=== PATIENT | male | born 1945 | race Caucasian/White ===

== ENCOUNTER → 2018-07-07 | Outpatient (CLI) | payer OTHER ==
--- NOTE | 2018-07-07 10:18 | MR ---
EXAMINATION TYPE: MR shoulder LT wo con DATE OF EXAM: 07/07/2018 COMPARISON: Radiograph 12/04/2013 HISTORY: 73-year-old male Pain in left shoulder TECHNIQUE: Multiplanar, multisequence imaging of the left shoulder is performed without contrast. FINDINGS: Heterogeneity of the subscapularis tendon which remains intact. There is intermediate signal within the intracapsular portion of the long biceps tendon. Mild to mode rate tenosynovial fluid along the bicipital groove. Moderate degenerative joint space narrowing and marginal spurring and capsular hypertrophy at the acr omioclavicular joint. Heterogeneous signal of both supraspinatus and infraspinatus tendons. There is an irregular full-thic kness tear of the anterior to mid supraspinatus tendon. The tear measures approximately 1.5 cm long b y 1.6 cm AP area of the tear is irregular with some minimal strandy fibers still seen intact and some additional fluid delaminating proximally along the myotendinous junction of the supraspinatus The infraspinatus tendon appears intact. No fatty atrophy of the rotator cuff musculature. There is a mild subacromial subdeltoid bursal effusion. The glenohumeral joint remains intact. No discrete labral tear given nonarthrographic technique and n o paralabral cyst. Along the anterior superior quadrant of the glenoid, normal variant of a sublabral foramen is suspected. No significant glenohumeral joint effusion. No Hill-Sachs deformity or os acromiale. Mild patchy red marrow replacement is present intermittently seen in setting of anemia, obesity, smoking, and chronic disease. IMPRESSION: 1. Diffuse rotator cuff tendinosis with an irregular full-thickness tear of the anterior to mid supra spinatus tendon measuring approximately 1.5 x 1.6 cm. There is some delaminating fluid extending more proximally along the myotendinous junction. 2. No muscle atrophy. 3. Moderate AC joint OA. 4. Intracapsular long head biceps tendinosis and tenosynovitis.
== END | disposition home or self-care (01) ==
LOC: RADMRIMAIN 07:45
PROVIDERS: ATTEND Physician Assistant
DX: M75.122 Complete rotator cuff tear or rupture of left shoulder, not specified as traumatic (principal); M19.012 Primary osteoarthritis, left shoulder; M67.814 Other specified disorders of tendon, left shoulder; M65.822 Other synovitis and tenosynovitis, left upper arm